=== PATIENT | male | born 1990 | race Caucasian/White ===

== ENCOUNTER 2016-12-12 15:01 | Emergency (ER) | payer SELFPAY ==
[~2016-12-12] VITALS: Ht 170.2 cm; Wt 75.3 kg
[2016-12-12] MEDS ORDERED: IBUP80TA PO (15:59)
[2016-12-12] MEDS ORDERED: NORCOTAB PO (15:59)
[2016-12-12] MEDS ORDERED: CLEO300C2 PO (15:59)
[2016-12-12] MEDS ORDERED: NORCO, ANEXSIA 5/325MG TABLET (HYDROcodone/ACETAMINOPHEN) PO ONE (16:00)
[2016-12-12] MEDS ORDERED: CLINDAMYCIN 150 MG CAP PO ONE (16:00)
[2016-12-12 16:20] VITALS: BP 128/78
== END 2016-12-12 16:40 | disposition home or self-care (01) ==
LOC: M ED 15:01
DX: K08.89 Other specified disorders of teeth and supporting structures (principal); Z72.0 Tobacco use

== ENCOUNTER 2019-11-20 13:28 | Emergency (ER) | payer SELFPAY ==
[~2019-11-20] VITALS: Ht 170.2 cm; Wt 78.1 kg
[2019-11-20 13:28] VITALS: BP 161/99
[~2019-11-20 13:28] MED LIST: CLEO300C2 PO; HYDR-3715 PO; IBUP80TA PO
[2019-11-20] MEDS ORDERED: ACET-683 PO (13:33)
[2019-11-20] MEDS ORDERED: KETOROLAC 60MG 2ML VIAL IM ONE (14:15)
[2019-11-20] MEDS ORDERED: AUGMENTIN 875 MG TAB PO ONE (14:15)
[2019-11-20] MEDS ORDERED: AUGM875T28 PO (14:17)
== END 2019-11-20 14:35 | disposition home or self-care (01) ==
LOC: M ED 13:28
DX: K04.7 Periapical abscess without sinus (principal); Z72.0 Tobacco use
CPT/HCPCS: 96372; 99284; J1885

== ENCOUNTER → 2020-04-16 | Outpatient (CLI) | payer OTHER, SELFPAY ==
[~2020-04-16] MED LIST changes: +ACET-683 PO; +AUGM875T28 PO
== END ==
LOC: M LABSMTC 13:23
PROVIDERS: ATTEND Family Medicine
DX: Z20.828 Contact with and (suspected) exposure to other viral communicable diseases (principal)